=== PATIENT | male | born 1950 | race Caucasian/White ===

== ENCOUNTER 2024-08-04 06:43 | Inpatient (IN) | payer MEDICARE, OTHER, SELFPAY ==
[2024-08-03] VITALS (15 sets, daily range): BP systolic 104–169; BP diastolic 63–92; BMI 22.8; BMI 22.2
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
[2024-08-03 09:59] LABS: % Basophils 0.5 % (0-2); % Immature Granulocytes 0.4 % (0-0.5); % Lymphocytes 4.4 % (20.5-51.1); % Monocytes 7.5 % (1.7-9.3); % Neutrophils 87.2 % (42.2-75.2); Absolute Basophils 0.1 10^3/uL (0-0.2); Absolute Immature Granulocytes 0.1 10^3/uL (0-0.05); Absolute Lymphocytes 0.5 10^3/uL (1.2-3.4); Absolute Monocytes 0.9 10^3/uL (0.1-0.6); Hematocrit 40.8 % (39.0-52.0); Mean Corp Hgb Conc. 34.3 g/dL (33.0-37.0); Mean Corpuscular Hgb 30.5 pg (27.0-31.0); Mean Corpuscular Volume 88.9 fL (80.0-94.0); Mean Platelet Volume 9.3 fL (7.4-10.4); Nucleated Red Blood Cells % 0 % (-); Platelet Count 204 10^3/uL (130-400); Red Blood Cell Count 4.59 10^6/uL (4.70-6.10); Red Cell Dist. Width 13.2 % (11.5-14.5); White Blood Cell Count 11.5 10^3/uL (4.8-10.8)
[2024-08-03 10:15] LABS: Urine Albumin 1+ (Neg - Trace); Urine Bilirubin Negative (Negative); Urine Character Clear (Clear); Urine Color Yellow; Urine Glucose Negative (Negative); Urine Ketone 1+ (Negative); Urine Leukocyte Negative (Negative); Urine Nitrite Negative (Negative); Urine Occult Blood 3+ (Negative); Urine Urobilinogen Negative (Neg - 1+)
[2024-08-03 10:22] LABS: ALT (SGPT) 17 U/L (0-50); AST (SGOT) 30 U/L (17-59); Albumin 4.5 g/dl (3.5-5.0); Alkaline Phosphatase 69 U/L (38-126); Blood Urea Nitrogen 28 mg/dl (9-20); Calcium 8.9 mg/dl (8.4-10.2); Carbon Dioxide 22 mmol/L (22-30); Chloride 103 mmol/L (98-107); Estimated Creatinine Clearance 40 ml/min; Glucose 165 mg/dl (70-99); Potassium 4.2 mmol/L (3.5-5.1); Sodium 138 mmol/L (135-145); Total Bilirubin 0.8 mg/dl (0.2-1.3); Total Protein 7.5 g/dl (6.3-8.2)
[2024-08-03 10:28] LABS: Lactic Acid 1.7 mmol/L (0.7-2.0)
[2024-08-03] MEDS: NSS 1000 IV ×2 (10:52→19:54)
[2024-08-03 11:21] LABS: Urine Mucus Few; Urine Squamous Cell 0-2 /LPF (Few)
[2024-08-03 11:22] LABS: Urine Amorphous Seen; Urine Hyaline Cast 0-2 /LPF (0-2)
[2024-08-03 11:24] LABS: Urine White Cell 0-2 /HPF (0-5)
[2024-08-03] MEDS: ROCEPHIN 1000 MG IV (13:09)
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
--- NOTE | 2024-08-03 14:04 | PHANOTE ---
med rec note- no medication from [facility] with patient, called manuel clarke to have med list faxed over to [facility] fax
[2024-08-03 17:01] LABS: COVID-19 Antigen Positive (Negative)
[2024-08-03] MEDS: VIBRAMYCIN 260 MG IV (18:28)
[2024-08-03] MEDS: COLACE 100 MG PO (19:53)
[2024-08-03] MEDS: TYLENOL 650 MG PO (19:53)
[2024-08-03] MEDS: HEPARIN 5000 UNITS SC (19:54)
--- NOTE | 2024-08-03 21:47 | PTCARENOTE ---
Pt came from ED via stretcher into room 330. Pt ambulated safely into room with staff assistance. Pt oriented to room, call martinez within reach.
[2024-08-04] MEDS: NSS 1000 IV ×2 (05:26→15:06)
[2024-08-04] MEDS: VIBRAMYCIN 260 MG IV ×2 (06:03→20:20)
[2024-08-04 06:36] LABS: % Basophils 0.7 % (0-2); % Eosinophils 0.3 % (0-6); % Immature Granulocytes 0.3 % (0-0.5); % Lymphocytes 7.4 % (20.5-51.1); % Monocytes 9.1 % (1.7-9.3); % Neutrophils 82.2 % (42.2-75.2); Absolute Basophils 0.1 10^3/uL (0-0.2); Absolute Lymphocytes 0.7 10^3/uL (1.2-3.4); Absolute Monocytes 0.8 10^3/uL (0.1-0.6); Absolute Neutrophils 7.4 10^3/uL (1.4-6.5); Hematocrit 38.6 % (39.0-52.0); Hemoglobin 13.1 g/dL (13.0-18.0); Mean Corp Hgb Conc. 33.9 g/dL (33.0-37.0); Mean Corpuscular Hgb 30.8 pg (27.0-31.0); Mean Corpuscular Volume 90.6 fL (80.0-94.0); Mean Platelet Volume 9.7 fL (7.4-10.4); Nucleated Red Blood Cells % 0 % (-); Platelet Count 183 10^3/uL (130-400); Red Blood Cell Count 4.26 10^6/uL (4.70-6.10); Red Cell Dist. Width 13.4 % (11.5-14.5)
[2024-08-04 07:00] LABS: ALT (SGPT) 15 U/L (0-50); AST (SGOT) 40 U/L (17-59); Albumin 3.7 g/dl (3.5-5.0); Alkaline Phosphatase 64 U/L (38-126); Blood Urea Nitrogen 27 mg/dl (9-20); Calcium 7.7 mg/dl (8.4-10.2); Carbon Dioxide 24 mmol/L (22-30); Chloride 107 mmol/L (98-107); Estimated Creatinine Clearance 41 ml/min; Glucose 96 mg/dl (70-99); Potassium 4.4 mmol/L (3.5-5.1); Sodium 140 mmol/L (135-145); Total Bilirubin 0.5 mg/dl (0.2-1.3); Total Protein 6.4 g/dl (6.3-8.2)
[2024-08-04 07:34] VITALS: BP 183/89
[2024-08-04] MEDS: HEPARIN 5000 UNITS SC ×2 (07:53→20:20)
[2024-08-04] MEDS: COLACE 100 MG PO (07:53)
[2024-08-04] MEDS: VITAMIN B-12 1000 MCG PO (07:54)
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
[2024-08-04] MEDS: STERILE WATER FOR INJECTION 10 ML IV (15:00)
[2024-08-04] MEDS: ROCEPHIN 1000 MG IV (15:00)
[2024-08-04 15:15] VITALS: BP 121/85
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
[2024-08-04] MEDS: VIBRAMYCIN IV (18:47)
[2024-08-04 23:00] VITALS: BP 159/80
[2024-08-05] MEDS: NSS 1000 IV (01:59)
[2024-08-05] MEDS: VIBRAMYCIN 260 MG IV (06:41)
[2024-08-05 07:32] VITALS: BP 130/73
[2024-08-05 08:14] LABS: Estimated Creatinine Clearance 51 ml/min; eGFR 58.37
[2024-08-05 08:25] LABS: Blood Urea Nitrogen 21 mg/dl (9-20); Calcium 7.5 mg/dl (8.4-10.2); Carbon Dioxide 19 mmol/L (22-30); Chloride 111 mmol/L (98-107); Glucose 98 mg/dl (70-99); Potassium 4.1 mmol/L (3.5-5.1); Sodium 139 mmol/L (135-145)
[2024-08-05] MEDS: HEPARIN 5000 UNITS SC ×2 (08:31→21:19)
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
--- NOTE | 2024-08-05 12:59 | W.PN.UPDATE ---
Update Note
Progress Note Update
Patient is drowsy and difficult to wake.
Chart reviewed and discussed with Dr. Delgadillo.He is not agitated or aggressive and overall compliant with treatment.At this point I would not use antipsychotic meds; of course if he becomes agitated or psychotic low dose of Risperdal could help.
[2024-08-05] MEDS: STERILE WATER FOR INJECTION 10 ML IV (15:29)
[2024-08-05] MEDS: ROCEPHIN 1000 MG IV (15:29)
[2024-08-05 15:38] VITALS: BP 168/80
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
[2024-08-05 23:30] VITALS: BP 133/82
[2024-08-06 07:00] VITALS: BP 146/78
[2024-08-06 07:56] LABS: Blood Urea Nitrogen 19 mg/dl (9-20); Calcium 7.9 mg/dl (8.4-10.2); Carbon Dioxide 21 mmol/L (22-30); Chloride 109 mmol/L (98-107); Estimated Creatinine Clearance 51 ml/min; Glucose 95 mg/dl (70-99); Potassium 4.1 mmol/L (3.5-5.1); Sodium 140 mmol/L (135-145); eGFR 58.37
[2024-08-06] MEDS: HEPARIN 5000 UNITS SC ×2 (08:58→19:41)
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
--- NOTE | 2024-08-06 13:44 | W.PN.ID1 ---
Date of Service
Date of Service: August 06, 2024
Today's Communication
- no need for antivirals at this time, continues saturating well on room air
- remains well off of antibiotics
- supportive care
- follow up with provider at [facility]
Assessment / Plan
Covid - mild, no hypoxemia
TME with background of dementia
- no need for antivirals at this time, continues saturating well on room air
- remains well off of antibiotics
- supportive care
- follow up with provider at [facility]
Chief Complaint
-: Other (covid)
Subjective / Review of Systems
afebrile
saturating 99% on room air
no events overnight
Vital Signs / Physical Exam
Vital Signs
Vital Signs
Temp Pulse Resp BP Pulse Ox
98.5 F 72 16 146/78 99
08/06/24 07:00 08/06/24 07:00 08/06/24 07:00 08/06/24 07:00 08/06/24 07:00
Physical Exam
Constitutional: No Acute Distress and Chronically Ill
Cardiovascular: Regular Rate
Pulmonary: Symmetric and Non Labored
Gastrointestinal: Soft and Non Distended
Skin: Dry; Negative Rash or Jaundice
Neurological: Awake
Objective Data
Lab Data
Lab Results
08/04/24 06:01
08/06/24 06:41
Estimated Creat Clear 51 ml/min 08/06/24 06:41
Lactic Acid 1.7 mmol/L (0.7-2.0) 08/03/24 09:46
Total Bilirubin 0.5 mg/dl (0.2-1.3) 08/04/24 06:01
AST 40 U/L (17-59) 08/04/24 06:01
ALT 15 U/L (0-50) 08/04/24 06:01
Alkaline Phosphatase 64 U/L (38-126) 08/04/24 06:01
Most recent labs reviewed.
Micro Results:
08/05/24 09:36 - Final
Feces/Stool Negative for Norovirus GI and GII.
08/03/24 16:12 Influenza Types A & B (CASSIDY) - Final
Nasal Swab Negative for Influenza A & B, NAAT
Negative results must be combined with clinical observations
and patient history.
Nucleic Acid Amplification test (NAAT)performed on the
[employer] platform.
[2024-08-06 15:00] VITALS: BP 163/85
[2024-08-06 23:31] VITALS: BP 125/67
[2024-08-07] MEDS: HEPARIN 5000 UNITS SC (07:26)
[2024-08-07 07:45] VITALS: BP 149/75
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
--- NOTE | 2024-08-07 12:43 | W.DCSUMMARY ---
Discharge Summary
Discharge Data
Date of Admission: 08/04/24
Date of Discharge: 08/07/24
-
Pending Results: No
Hospital Course
73 years old male presented with fatigue, dysuria for 1 to 2 days. He had mild leukocytosis on admission with fever. Urine test was not suggestive of urine tract infection. Patient was noted to have cough. He tested positive for COVID infection.
Influenza virus was negative. Patient had mild patient had mild diarrhea, tested negative for norovirus, he did not have abdominal pain. Patient injury was given intravenous fluid. Kidney function returned back to normal. Patient was evaluated
by infectious disease doctor. He was diagnosed with mild COVID infection with no hypoxemia. Chest radiography did not show definitive infiltrate. CAT scan of abdomen and pelvis showed 4 mm nonobstructing left renal stone, 1.4 cm left parapelvic
renal cyst which was stable, mild prostate hypertrophy. Patient was given empiric antibiotics for short course and he finished the treatment. He was maintained on supportive care. He was able to tolerate oral diet. long term reported recent
aggressive behavior. Patient did not have agitation in the hospital. He was seen by psychiatrist recommended to continue supportive care. Patient was found to have encephalopathy secondary to COVID infection. He remained hemodynamically stable
and was discharged back to [facility] in a stable condition.
Discharge Plan
-
Patient Disposition: Senior Living/SNF
Discharge Diagnosis/Procedures: Mild Covid infection
Acute dysuria, finished course of antibiotic, seen by ID doctor.
Diet: As tolerated
Referrals:
Christian Marcum MD [Family Provider] -
Devin Delgadillo MD [Active] - (As needed )
Prescriptions:
Continued
acetaminophen [Tylenol] 325 mg Tablet
650 mg PO Q4HPRN PRN (Reason: mild pain)
cyanocobalamin (vitamin B-12) 1,000 mcg Tablet
1,000 mcg PO FR
magnesium hydroxide [Milk of Magnesia] 400 mg/5 mL Suspension
2,400 mg PO DAILYPRN PRN (Reason: if no bm on 3rd day)
bisacodyl [Dulcolax (bisacodyl)] 10 mg Suppository
10 mg VA DAILYPRN PRN (Reason: if no bm aftr mom)
Fleet Enema 19-7 gram/118 mL Enema
118 ml VA DAILYPRN PRN (Reason: if no bm aftr dulolcax)
docusate sodium [Colace] 100 mg Capsule
100 mg PO BID
Discharge Orders:
Discharge Patient (As Directed); Ordered 08/07/24
Ordered By: Jenny Nina
Discharge Date and Time
Discharge Date/Time: 08/07/24 19:20
Print Language: LITHUANIAN
--- NOTE | 2024-08-07 13:43 | CM ---
Addendum entered by SERAFIN Bocanegra 08/07/24 16:37:
RN updated. Placed a call to patient's daughter to review discharge. She was agreeable to transfer back to [facility].
IMM reviewed and on chart.
Addendum entered by SERAFIN Bocanegra 08/07/24 16:14:
Received call back from Barbie at [facility] who stated that patient can return today # For report [phone] fax [phone]
Original Note:
Spoke with RN who stated that per attending, patient medically cleared for discharge. Placed a call to Klarissa in admissions to update and obtain # for report and fax. There was no answer and outgoing voice mail message stated that it was full so that
no message could be left. Messaged Klarissa and asked her to call about her resident.
Plan: Case management will continue to follow and assist with discharge planning. Back to [facility]. Awaiting call back from admissions.
[2024-08-07 15:00] VITALS: BP 145/80
--- NOTE | 2024-08-07 15:27 | W.PN.ID1 ---
Date of Service
Date of Service: August 07, 2024
Today's Communication
follow up with provider at [facility]
Assessment / Plan
Covid - mild, no hypoxemia
TME with background of dementia
- no need for antivirals at this time, continues saturating well on room air
- remains well off of antibiotics
- supportive care
- follow up with provider at [facility]
Chief Complaint
-: Other (covid)
Subjective / Review of Systems
no further fevers
bp stable
saturating well on room air
Vital Signs / Physical Exam
Vital Signs
Vital Signs
Temp Pulse Resp BP Pulse Ox
97 F 50 20 149/75 96
08/07/24 07:45 08/07/24 07:45 08/07/24 07:45 08/07/24 07:45 08/07/24 07:45
Physical Exam
Constitutional: No Acute Distress
Cardiovascular: Regular Rate
Pulmonary: Symmetric and Non Labored
Gastrointestinal: Non Distended
Neurological: Awake
Objective Data
Lab Data
Lab Results
08/04/24 06:01
08/06/24 06:41
Estimated Creat Clear 51 ml/min 08/06/24 06:41
Lactic Acid 1.7 mmol/L (0.7-2.0) 08/03/24 09:46
Total Bilirubin 0.5 mg/dl (0.2-1.3) 08/04/24 06:01
AST 40 U/L (17-59) 08/04/24 06:01
ALT 15 U/L (0-50) 08/04/24 06:01
Alkaline Phosphatase 64 U/L (38-126) 08/04/24 06:01
Most recent labs reviewed.
Micro Results:
08/05/24 09:36 - Final
Feces/Stool Negative for Norovirus GI and GII.
08/03/24 16:12 Influenza Types A & B (CASSIDY) - Final
Nasal Swab Negative for Influenza A & B, NAAT
Negative results must be combined with clinical observations
and patient history.
Nucleic Acid Amplification test (NAAT)performed on the
[employer] platform.
--- NOTE | 2024-08-08 09:06 | PN.CDI ---
CDI
- -
CDI:
Physician Documentation Request
Admit Date: 08/04/24 06:43
Dear Doctor Maico,
Patient admitted for covid.
Laboratory Tests
08/03/24 08/04/24 08/05/24
09:46 06:01 07:34
Creatinine 1.7 H 1.6 H 1.3
The purpose of this query is not to question medical judgement, but to ensure the accuracy of the conditions reported for your patient.
There is either a lack of clinical support for this condition in the current medical record, or there is a lack of recognized standard criteria to support the condition.
Criteria for CLARENCE*
1 Increase in serum creatinine by > or = to 0.3 mg/dL (> or = to 26.5 micromol/L) within 48 hours, OR
2 Increase in serum creatinine to > or = to 1.5 times baseline, which is known or presumed to have occurred within 7 days, OR
3 Urine volume < 0.5 nL/kg/hour for six hours
The request is for one of the following:
- Additional documentation to support the condition. Indicate if this is in lieu of what may be considered standard criteria, and/or support why the standard criteria may not be present for this patient.
- A more appropriate diagnosis, reflecting the patient's condition
- CLARENCE remains a known or suspected condition for this patient and is further supported by (include additional documentation in the medical record)
- CLARENCE has been ruled out and a more appropriate diagnosis for this patient's condition is .
- Other (please specify)
- Unable to determine
Use of terms such as suspected, likely, concern for, or probable (associated with a specific diagnosis that is being evaluated, monitored, or treated as if it exists) are acceptable and can be coded in the inpatient setting, when documented at the
time of discharge.
Thank you,
Kelly Francois RN, BSN
CDI Specialist
Available via [place] text
Please use your independent medical judgment in providing your response.
--- NOTE | 2024-08-08 09:10 | PN.CDI ---
Addendum entered and electronically signed by Jenny Nina MD 08/08/24 09:36:
CLARENCE remains a known or suspected condition for this patient
Original Note:
CDI
- -
CDI:
Physician Documentation Request
Admit Date: 08/04/24 06:43
Dear Doctor Maico,
Patient admitted for covid.
08/07 Hospitalist PN: 'Acute kidney injury, Creatinine is coming down, Suspect CKD unknown stage'
Laboratory Tests
08/03/24 08/04/24 08/05/24
09:46 06:01 07:34
Creatinine 1.7 H 1.6 H 1.3
The purpose of this query is not to question medical judgement, but to ensure the accuracy of the conditions reported for your patient.
There is either a lack of clinical support for this condition in the current medical record, or there is a lack of recognized standard criteria to support the condition.
Criteria for CLARENCE*
1 Increase in serum creatinine by > or = to 0.3 mg/dL (> or = to 26.5 micromol/L) within 48 hours, OR
2 Increase in serum creatinine to > or = to 1.5 times baseline, which is known or presumed to have occurred within 7 days, OR
3 Urine volume < 0.5 nL/kg/hour for six hours
The request is for one of the following:
- Additional documentation to support the condition. Indicate if this is in lieu of what may be considered standard criteria, and/or support why the standard criteria may not be present for this patient.
- A more appropriate diagnosis, reflecting the patient's condition
- CLARENCE remains a known or suspected condition for this patient and is further supported by (include additional documentation in the medical record)
- CLARENCE has been ruled out and a more appropriate diagnosis for this patient's condition is .
- Other (please specify)
- Unable to determine
Use of terms such as suspected, likely, concern for, or probable (associated with a specific diagnosis that is being evaluated, monitored, or treated as if it exists) are acceptable and can be coded in the inpatient setting, when documented at the
time of discharge.
Thank you,
Kelly Francois RN, BSN
CDI Specialist
Available via [place] text
Please use your independent medical judgment in providing your response.
== END 2024-08-07 19:20 | DRG 177 ==
LOC: 3 WEST ACU 06:43
PROVIDERS: ADMITTING PHYSICIAN Hospitalist; ATTENDING PHYSICIAN Internal Medicine; CONSULT PHYSICIAN Psychiatry & Neurology Psychiatry; EMERGENCY PHYSICIAN Emergency Medicine; FAMILY PHYSICIAN Internal Medicine; OTHER PHYSICIAN Student in an Organized Health Care Education/Training Program
DX: U07.1 COVID-19 (principal); G92.8 Other toxic encephalopathy; J18.9 Pneumonia, unspecified organism; F03.94 Unspecified dementia, unspecified severity, with anxiety; F03.93 Unspecified dementia, unspecified severity, with mood disturbance; N17.9 Acute kidney failure, unspecified; N39.0 Urinary tract infection, site not specified; N28.1 Cyst of kidney, acquired; N40.0 Benign prostatic hyperplasia without lower urinary tract symptoms; K59.00 Constipation, unspecified; R19.7 Diarrhea, unspecified; F32.A Depression, unspecified; I10 Essential (primary) hypertension; J06.9 Acute upper respiratory infection, unspecified; N20.0 Calculus of kidney; H54.61 Unqualified visual loss, right eye, normal vision left eye; V89.2XXS Person injured in unspecified motor-vehicle accident, traffic, sequela; Z60.2 Problems related to living alone; Z87.891 Personal history of nicotine dependence
CPT/HCPCS: 71046; 74176; 80048; 80053; 81003; 81015; 83605; 85025; 87502; 87798; 87811; 96361; 96374; 99285